=== PATIENT | male | born 2005 | race Two or more races ===

== ENCOUNTER 2025-06-23 16:54 | Emergency (ER) | payer BC, OTHER ==
[~2025-06-23] VITALS: Ht 182.9 cm; Wt 78.1 kg
--- NOTE | 2025-06-23 16:59 | ED.PDOC ---
HPI Allergic reaction HPI Comments 20 year old male presents to the ED via EMS with a chief complaint of allergic reaction onset today. Patient states he was having lunch, homemade quesadillas, has eaten them in the past, began experiencing rash bilateral arms, chest, abdomen, shortness of breath. En route to ED he was given Benadryl 10 mg, upon E D arrival patient states symptoms have improved. Denies fever, chills, shortness of breath, chest pain, dizziness. No otehr symptoms or modifying factors present at this time. Time Seen by MD: 16:50 Reviewed Notes: Medications, Allergies Information Source: Patient, Emergency Med Personnel Mode of Arrival: EMS Timing: Hours Duration: Since onset Prehospital treatment: Other (Benadryl 10 mg) Location: Abdomen, Arm, Chest Exposed to: Food Developed: Rash, Shortness of Breath History of: None Modyifying Factors: None Past Medical History PAST MEDICAL HISTORY: Denies Surgical History: Denies all surgeries Family History Family History: Reviewed,noncontributory to illness, No family hx of Cancer, No family hx of DM, No family hx of Heart belkis, No family hx of HTN, No family hx ofKidney belkis, No family hx of Liver belkis, No family hx of Lung belkis, No family hx of Stroke Social History Smoker: Non-Smoker Alcohol: Denies ETOH Use Drugs: Denies Drug Use Lives In: Home Constitutional: denies: chills, diaphoresis, fatigue, fever, malaise, sweats, weakness, others EENTM: denies: blurred vision, double vision, ear bleeding, ear discharge, ear drainage, ear pain, ear ringing, eye pain, eye redness, hearing loss, mouth pain, mouth swelling, nasal discharge, nose bleeding, nose congestion, nose pain, photophobia, tearing, throat pain, throat swelling, voice changes, others Respiratory: reports: shortness of breath; denies: cough, hemoptysis, orthopnea, SOB at rest, SOB with excertion, stridor, wheezing, others Cardiovascular: denies: chest pain, dizzy spells, diaphoresis, Dyspnea on exertion, edema, irregular heart beat, left arm pain, lightheadedness, palpitations, PND, syncope, others Gastrointestinal: denies: abdomen distended, abdominal pain, blood streaked bowels, constipated, diarrhea, dysphagia, difficulty swallowing, hematemesis, melena, nausea, poor appetite, poor fluid intake, rectal bleeding, rectal pain, vomiting, others Genitourinary: denies: burning, dysuria, flank pain, frequency, hematuria, incontinence, penile discharge, penile sore, pain, testicle pain, testicle swelling, urgency, others Neurological: denies: dizziness, fainting, headache, left sided numbness, left sided weakness, numbness, paresthesia, pre-existing deficit, right sided numbness, right sided weakness, seizure, speech problems, tingling, tremors, weakness, others Musculoskeletal: denies: back pain, gout, joint pain, joint swelling, muscle pain, muscle stiffness, neck pain, others Integumetry: reports: rash; denies: bruises, change in color, change in hair/nails, dryness, laceration, lesions, lumps, wounds, others Allergic/Immunocompromised: reports: Itching; denies: Difficulty Healing, Frequent Infections, Hives, others Hematologic/Lymphatic: denies: anemia, blood clots, easy bleeding, easy bruising, swollen glands, others Endocrine: denies: excessive hunger, excessive sweating, excessive thirst, excessive urination, flushing, intolerance to cold, intolerance to heat, unexplained weight gain, unexplained weight loss, others Psychiatric: denies: anxiety, bipolar disorder, depression, hopeless, panic disorder, schizophrenia, sleepless, suicidal, others All Other Systems: Reviewed and Negative Physical Exam General Appearance: Moderate Distress, Normal HEENT: Normal ENT Inspection, Pharynx Normal, TMs Normal Neck: Full Range of Motion, Non-Tender, Normal, Normal Inspection Respiratory: Chest Non-Tender, Lungs Clear, No Accessory Muscle Use, No Respiratory Distress, Normal Breath Sounds Cardiovascular: No Edema, No JVD, No Murmur, No Gallop, Normal Peripheral Pulses, Regular Rate/Rhythm Breast Exam: Deferred Gastrointestinal: No Organomegaly, Non Tender, No Pulsatile Mass, Normal Bowel Sounds, Soft Genitalia: Deferred Pelvic: Deferred Rectal: Deferred Extremities: No calf tenderness, Normal capillary refill, Normal inspection, Normal range of motion, Non-tender, No pedal edema Musculoskeletal : Apperance: Normal Neurologic: Alert, viticulturist II-XII nml as Tested, No Motor Deficits, Normal Affect, Normal Mood, No Sensory Deficits Cerebellar Function: Normal Reflexes: Normal Skin: Dry, Normal Color, Rash (Extremities abdominal back), Warm Peripheral Pulses: 3+ Radial (R), 3+ Radial (L) Lymphatic: No Adenopathy Was a procedure done? Was a procedure done?: No Differential diagnosis (all) Differential Diagnosis: Anaphylaxis, Drug Reaction X-Ray, Labs, Meds, VS Patient alert. Comfortable. Rash after having considered ER made at home. Vitals stable. Answering questions. No sign of any distress. He does have rash most part of the body. Was given Benadryl in route. Was given steroid. Was given epi. Was given prescription of prednisone. Explained to the patient. Was told to follow up with his primary care physician. Was told to come back if there is any problem. Time of 1ST Reevaluation: 17:20 Reevaluation 1ST: Unchanged Patient Education/Counseling: Diagnosis, Treatment, Prognosis Family Education/Counseling: No Family Present SEPSIS Sepsis Screen Physician Orders Methylprednisolone Sod Succ (Solu Medrol (06/23/25 17:00) Epinephrine Hcl Injection (06/23/25 17:00) Departure 1 Departure Time of Disposition: 17:02 Impression: Primary Impression: Allergic reaction Qualified Codes: T78.40XA - Allergy, unspecified, initial encounter Disposition: HOME / SELF CARE / HOMELESS Condition: Good e-Prescriptions Prednisone (Prednisone) 20 Mg Tab 20 MG PO DAILY for 5 Days, #5 MG Prov: AMANDO HARDIN MD 06/23/25 Discharged With: Self Critical Care Note Critical Care Time?: No Stability Stability form required: No Heart Score Heart Score: Heart Score Response (Comments) Value History N/A 0 EKG N/A 0 Age N/A 0 Risk Factors N/A 0 Troponin N/A 0 Total 0 I personally scribed for AMANDO HARDIN MD ([email or web address]) on 06/23/25 at 16:59. Electronically submitted by Rosi Stafford ([email or web address]). AMANDO HARDIN MD Jun 23, 2025 16:59
[2025-06-23] MEDS ORDERED: PRED20TA2 PO (17:04)
[2025-06-23 18:30] VITALS: BP 135/77; PULSE 77; RESP 18; TEMP 97.7; O2SAT 98
[2025-06-23] MEDS: methylPREDNISolone SOD SUCC 125 MG/2 ML VL IV ONE (18:42)
== END 2025-06-23 19:55 | disposition home or self-care (01) ==
LOC: EDBD 16:54 → ER 16:54
DX: T78.49XA Other allergy, initial encounter (principal); X58.XXXA Exposure to other specified factors, initial encounter
CPT/HCPCS: 82947; 96372; 96374; 99284; J0169; J2919